=== PATIENT | female | born 1960 | race Caucasian/White ===

== ENCOUNTER 2021-05-27 16:33 | Emergency (ER) | payer OTHER ==
[~2021-05-27] VITALS: Ht 167.6 cm; Wt 63.5 kg
[~2021-05-27 16:33] MED LIST: ATEN-60; FLUO-126; HYDR25TA4; LISI40TA11
[2021-05-27 16:36] VITALS: BP 107/71
[2021-05-27] MEDS ORDERED: SODIUM CHLORIDE 0.9% 1,000 ML IV ONE (17:00)
[2021-05-27 20:29] LABS: Hematocrit 27.8 % (36.0-46.0); Hemoglobin 9.2 g/dL (12.2-16.2); Mean Corpuscular Hemoglobin 27.9 pg (28.0-32.0); Mean Corpuscular Hgb Conc. 32.9 g/dL (32.0-36.0); Mean Corpuscular Volume 84.7 fL (80.0-100.0); Red Blood Cells 3.29 10^6/uL (4.0-5.20); White Blood Cell 7.7 10^3/uL (4.4-10.8)
[2021-05-27 20:30] LABS: Red Cell Distribution Width 21.9 % (11.8-14.3)
[2021-05-27 20:31] LABS: Basophils % (manual) 0 (0.0-2.0); Blast Cells 0; Eosinophils % (manual) 0 (0-7); Metamyelocytes % 0; Myelocytes % 0; Promyelocytes % 0; Reactive Lymphocytes 0
[2021-05-27 21:21] LABS: Band Neutrophils % (manual) 3; Lymphocytes % (manual) 9 (10.0-50.0); Monocytes % (manual) 2 (0-12)
== END 2021-05-27 20:10 | disposition left against medical advice (07) ==
LOC: ER 16:33 → EDBD 16:33 → ER 20:10
DX: R53.1 Weakness (principal); C56.9 Malignant neoplasm of unspecified ovary; R51.9 Headache, unspecified; R42 Dizziness and giddiness; I10 Essential (primary) hypertension; E11.9 Type 2 diabetes mellitus without complications; Z79.899 Other long term (current) drug therapy; Z88.0 Allergy status to penicillin
CPT/HCPCS: 36415; 70450; 71045; 83880; 84484; 85007; 85027; 93005